=== PATIENT | female | born 1950 | race Caucasian/White ===

== ENCOUNTER 2016-08-21 16:31 | Emergency (ER) | payer OTHER ==
[2016-08-21 18:30] VITALS: TEMP 98; BMI 40.2
[2016-08-21] MEDS ORDERED: ONDANSETRON HCL 4 MG/2 ML VIAL IV ONE (18:51)
[2016-08-21] MEDS ORDERED: SODIUM CHLORIDE 0.9% 3 ML FLUSH FLUSH PRN (18:51)
[2016-08-21] MEDS ORDERED: NS 1,000 ML IV ONE ×2 (18:51)
[2016-08-21 19:07] LABS: AUTOMATED BASOPHIL 0.6 % (0-2); AUTOMATED EOSINOPHIL 1.4 % (0-5); AUTOMATED LYMPH 11.2 % (17-44); AUTOMATED MONOCYTE 4.3 % (3-10); AUTOMATED NEUTROPHIL 82.5 % (45-76)
[2016-08-21] MEDS ORDERED: HYDROmorphone 1 MG INJECTION IV ONE (19:17)
--- NOTE | 2016-08-21 19:19 | EDPRACDOC ---
- General Information Chief Complaint: Abdominal Pain Stated Complaint: LT SIDED ABD PAIN Time Seen by Provider: 08/21/16 18:49 Information Source: Patient Mode Of Arrival: Car Home Medications: Home Medications Cyanocobalamin (Vitamin B-12) [Vitamin B12] 2,500 mcg PO DAILY 04/20/15 Esomeprazole Mag Trihydrate [Nexium] 40 mg PO DAILY 04/20/15 Lorazepam [Ativan] 0.5 mg PO BID 04/20/15 Labetalol HCl [Trandate,Normodyne] 200 mg PO BID 08/21/16 Ondansetron [Zofran Odt] 4 mg PO Q6H #20 tab.rapdis 08/21/16 Oxycodone Immediate Release [Oxycodone Immediate Release (OxyIR)] 5 mg PO Q4H PRN #20 tab 08/21/16 Tamsulosin HCl [Flomax] 0.4 mg PO DAILY #20 cap 08/21/16 Allergies/Adverse Reactions: Allergies Allergy/AdvReac Type Severity Reaction Status Date / Time codeine Allergy Difficulty Verified 08/21/16 19:18 Breathing morphine Allergy Difficulty Verified 08/21/16 19:18 Breathing - History of Present Illness Onset: 1600 HPI: PT PRESENTS TO ED WITH ACUTE ONSET OF LLQ ABD PAIN THAT IS SHARP STABBING WITH NAUSEA. STATES SHE HAS H/O 2 KIDNEY STONES IN LEFT KIDNEY. DENIES RECTAL BLEEDING HEMATURIA OR URINARY SYMPTOMS. Pain Location: Reports: LLQ Pain Context: Reports: Spontaneous Pain Severity: Moderate Pain Quality: Reports: Sharp, Stabbing Pain Radiation: Reports: No Radiation : No Modifying Factors: improves with: Position, Movement Female Associated Signs & Symptoms: Reports: Nausea Oral Intake: Normal Urinary Output: Normal ED Past Medical History - History Reviewed Yes Nurses notes reviewed and agree except as marked Travel Outside of [place] in the Last 3 Months?: No - Patient Medical History Cardiac History: Reports: Hypertension, Heart Attack, Hypercholesterolemia GI/ History: Reports: Gastroesophageal Reflux Psychological History: Reports: Anxiety. Denies: Depression Systemic History: Reports: Cancer (BASAL CELL) Surgical History: Reports: Cholecystectomy, Hysterectomy, Hernia Surgery - Family Medical History Reports: Hypertension, Diabetes, Cancer (DAD-STOMACH), Cardiac Disorders. Denies: Stroke - Social Medical History Smoking Status: Never smoker ETOH: None Substance Abuse: None Lives With: Other Lives In: Home EDM Review of Systems - Review of Systems ROS Negative Except as Marked: Yes All systems reviewed and were negative except as marked Constitutional: No Symptoms Reported. negative: Fever, Chills, Weakness, Fatigue, Loss of Appetite Eyes: No Symptoms Reported. negative: Redness, Blurred Vision, Double Vision, Discharge, Pain, Light Sensitive, Photophobia Ears: No Symptoms Reported. negative: Pain, Hearing Loss, Drainage, Ear Pulling Throat: No Symptoms Reported. negative: Pain, Swelling Nose: No Symptoms Reported. negative: Congestion, Bleeding, Discharge, Injection, Swelling, Deformity, Ecchymosis, Tender, Abrasion, Laceration Mouth: No Symptoms Reported. negative: Pain, Drooling Respiratory: No Symptoms Reported. negative: Cough, Brassy Cough, Barky Cough, Shortness of Breath, Wheezing, Hemoptysis Cardiovascular: No Symptoms Reported. negative: Chest Pain, Palpitations, Syncope, Edema, Orthopnea, PND, Skin Mottling, Cyanosis Gastrointestinal: Nausea, Pain. negative: Constipation, Diarrhea, Formula Intolerance, Melena, Vomiting Genitourinary: No Symptoms Reported. negative: Dysuria, Hematuria, Frequency, Discharge, Bleeding, Testicular Pain, Neurological: No Symptoms Reported. negative: Headache, Dizziness, Seizure, Numbness, Weakness, Speech Difficulty, Gait Difficulty Musculoskeletal: No Symptoms Reported. negative: Neck, Chestwall, Ribs, Back, Shoulder, Arm, Elbow, Forearm, Wrist, Hand, Pelvis, Hip, Femur, Knee, Leg, Ankle , Foot Integumentary: No Symptoms Reported. negative: Itching, Rash, Bruising, Wound Allergic/Immunologic: No Symptoms Reported. negative: Hives, Itching Hematologic: No Symptoms Reported. negative: Lymphadenopathy, Easy Bruising, Easy Bleeding Endocrine: No Symptoms Reported. negative: Weight Gain, Weight Loss Psychiatric: No Symptoms Reported. negative: Anxiety, Depression, Hallucinations, Insomnia, Suicidal - Physical Exam Constitutional: No apparent distress, Alert (Awake) Oriented to: Time, Person, Place Last recorded Vital Signs: Last Vital Signs Temp 98.0 F 08/21/16 18:21 Pulse 92 08/21/16 20:26 Resp 20 08/21/16 20:26 BP 238/112 H 08/21/16 20:26 Pulse Ox 96 08/21/16 20:26 Oxygen Pulse Oxygen Saturation 96 O2 Device Room Air Oxygen Flow Rate Fraction of Inspired Oxygen ( FIO2) - HEENT Head: Normal ( normocephalic) Eye Exam: Normal (PERRL, EOMI, Sclera white) Oropharynx: Normal (Pharynx:Moist without exudate,Gums-no swelling) Tympanic Membrane: Normal ENT EAC: Normal TMJ: Normal Nose: No Symptoms Reported (septum midline) Neck: Normal (FROM, trachea at midline) - Respiratory/Cardiovascular Respiratory: Normal - CTA (BBS clear to auscultation without adventitious sounds ) Cardiovascular: Normal (RRR without murmur, gallop or rub) - GI Auscultation: Normal (NABS) Palpation: Normal (Soft,No rebound or guarding, non distended) Tenderness: Moderate, LLQ, Rebound Silva's Sign: Negative - Bladder: Normal - Musculoskeletal Back: Normal (Non-Tender) Extremities: Normal (Normal tone, Pulses 2+ No cyanosis or edema, FROM) - Integumentary Skin: Normal, Warm, Dry Lymphatics: Normal (no adenopathy) - Neurologic Memory Impaired: Normal Motor Function: Normal (Normal tone, Pulses 2+ No cyanosis or edema, FROM) Cranial Nerve: Normal (CN II-X11 intact sensation, strength 5/5) Cerebellar: Normal Mood Description: Normal Perception: Normal - Differential Diagnosis Constipation, Diverticulitis, Urolithiasis, UTI - Results 08/21/16 18:30 08/21/16 18:30 WBC 12.6 xk/uL (3.8-10.8) H 08/21/16 18:30 RBC 4.50 xM/uL (4.20-5.40) 08/21/16 18:30 Hgb 12.9 g/dL (12.0-16.0) 08/21/16 18:30 Hct 39.0 % (36-47) 08/21/16 18:30 MCV 87 fL (81-99) 08/21/16 18:30 MCH 28.8 pg (27-32) 08/21/16 18:30 MCHC 33.2 g/dl (33-36) 08/21/16 18:30 RDW 13.8 % (11.5-14.5) 08/21/16 18:30 Plt Count 243 xk/uL (130-400) 08/21/16 18:30 MPV 10.0 fL (7.4-10.4) 08/21/16 18:30 Neut % (Auto) 82.5 % (45-76) H 08/21/16 18:30 Lymph % (Auto) 11.2 % (17-44) L 08/21/16 18:30 Atkinson % (Auto) 4.3 % (3-10) 08/21/16 18:30 Eos % (Auto) 1.4 % (0-5) 08/21/16 18:30 Baso % (Auto) 0.6 % (0-2) 08/21/16 18:30 Absolute Neuts (auto) 10.33 xk/uL (1.7-8.2) H 08/21/16 18:30 Absolute Lymphs (auto) 1.39 xk/uL (0.65-4.75) 08/21/16 18:30 Sodium 140 mEq/L (137-146) 08/21/16 18:30 Potassium 4.2 mEq/L (3.5-5.1) 08/21/16 18:30 Chloride 105 mEq/L (98-107) 08/21/16 18:30 Carbon Dioxide 20 mMOL/L (22-33) L 08/21/16 18:30 Anion Gap 19 mEq/L (8-16) H 08/21/16 18:30 BUN 19 MG/DL (7-17) H 08/21/16 18:30 Creatinine 0.90 MG/DL (0.52-1.04) 08/21/16 18:30 Estimated GFR (MDRD) > 60 mL/min (>=60) 08/21/16 18:30 Glucose 184 MG/DL (70-99) H 08/21/16 18:30 Calculated Osmolality 276 MOs/Kg (270-290) 08/21/16 18:30 Calcium 9.6 MG/DL (8.4-10.2) 08/21/16 18:30 Total Bilirubin 0.7 MG/DL (0.2-1.3) 08/21/16 18:30 AST 34 IU/L (14-36) 08/21/16 18:30 ALT 51 IU/L (9-52) 08/21/16 18:30 Alkaline Phosphatase 167 IU/L (55-165) H 08/21/16 18:30 Total Protein 7.7 G/DL (6.3-8.2) 08/21/16 18:30 Albumin 4.3 G/DL (3.5-5.0) 08/21/16 18:30 Lipase 136 U/L (23-300) 08/21/16 18:31 Urine Color Dark yellow 08/21/16 18:31 Urine Clarity Cldy 08/21/16 18:31 Urine pH 6.0 (5.0-8.0) 08/21/16 18:31 Ur Specific [place] 1.025 (1.003-1.035) 08/21/16 18:31 Urine Protein 2+ (NEG/TRACE) H 08/21/16 18:31 Urine Glucose (UA) Neg (NEGATIVE) 08/21/16 18:31 Urine Ketones Neg (NEGATIVE) 08/21/16 18:31 Urine Occult Blood 3+ (NEG/TRACE) H 08/21/16 18:31 Urine Nitrite Neg (NEGATIVE) 08/21/16 18:31 Urine Bilirubin Neg (NEGATIVE) 08/21/16 18:31 Urine Urobilinogen <2.0 MG/DL (0-1) 08/21/16 18:31 Ur Leukocyte Esterase Neg (NEGATIVE) 08/21/16 18:31 Urine RBC Tntc (0-5) H 08/21/16 18:31 Ur Epithelial Cells 2+ 08/21/16 18:31 Urine Bacteria Few (NEG/FEW) 08/21/16 18:31 Urine Mucus Large (NEG/OCC) 08/21/16 18:31 Lab Results 08/21/16 08/21/16 08/21/16 18:31 18:31 18:30 WBC 12.6 H RBC 4.50 Hgb 12.9 Hct 39.0 MCV 87 MCH 28.8 MCHC 33.2 RDW 13.8 Plt Count 243 MPV 10.0 Neut % (Auto) 82.5 H Lymph % (Auto) 11.2 L Atkinson % (Auto) 4.3 Eos % (Auto) 1.4 Baso % (Auto) 0.6 Absolute Neuts (auto) 10.33 H Absolute Lymphs (auto) 1.39 Sodium Potassium Chloride Carbon Dioxide Anion Gap BUN Creatinine Estimated GFR (MDRD) Glucose Calculated Osmolality Calcium Total Bilirubin AST ALT Alkaline Phosphatase Total Protein Albumin Lipase 136 Urine Color Dark yellow Urine Clarity Cldy Urine pH 6.0 Ur Specific [place] 1.025 Urine Protein 2+ H Urine Glucose (UA) Neg Urine Ketones Neg Urine Occult Blood 3+ H Urine Nitrite Neg Urine Bilirubin Neg Urine Urobilinogen <2.0 Ur Leukocyte Esterase Neg Urine RBC Tntc H Ur Epithelial Cells 2+ Urine Bacteria Few Urine Mucus Large 08/21/16 18:30 WBC RBC Hgb Hct MCV MCH MCHC RDW Plt Count MPV Neut % (Auto) Lymph % (Auto) Atkinson % (Auto) Eos % (Auto) Baso % (Auto) Absolute Neuts (auto) Absolute Lymphs (auto) Sodium 140 Potassium 4.2 Chloride 105 Carbon Dioxide 20 L Anion Gap 19 H BUN 19 H Creatinine 0.90 Estimated GFR (MDRD) > 60 Glucose 184 H Calculated Osmolality 276 Calcium 9.6 Total Bilirubin 0.7 AST 34 ALT 51 Alkaline Phosphatase 167 H Total Protein 7.7 Albumin 4.3 Lipase Urine Color Urine Clarity Urine pH Ur Specific [place] Urine Protein Urine Glucose (UA) Urine Ketones Urine Occult Blood Urine Nitrite Urine Bilirubin Urine Urobilinogen Ur Leukocyte Esterase Urine RBC Ur Epithelial Cells Urine Bacteria Urine Mucus - Diagnostic Imaging CT ABD/PEL Image interpreted by: Radiologist 08/21/16 21:34 IMPRESSION: Mild left hydronephrosis due to a 0.5 cm stone at the ureteropelvic junction. No other acute abnormality. Fatty infiltration of the liver. Hiatal hernia. Atherosclerosis. Status post cholecystectomy and hysterectomy. - Departure Disposition: Home Condition: Stable Final Diagnosis: Calcium urolithiasis Instructions: Acute Abdominal Pain (ED), Ureteral Stones (ED) Education/Counseling Given To: Patient Education/Counseling Given Regarding: Diagnosis, Treatment, Prognosis, Follow Up Referrals: Eugenio Marie MD [Primary Care Provider] - One Week Drake Young MD [Staff Physician] - One Week Prescriptions: Ondansetron [Zofran Odt] 4 mg PO Q6H #20 tab.rapdis Oxycodone Immediate Release [Oxycodone Immediate Release (OxyIR)] 5 mg PO Q4H PRN #20 tab PRN Reason: Pain Tamsulosin HCl [Flomax] 0.4 mg PO DAILY #20 cap Additional Instructions: INCREASE PO FLUIDS, RETURN FOR WORSE OR DIFFERENT SYMPTOMS.
[2016-08-21 19:25] LABS: BLOOD UREA NITROGEN 19 MG/DL (7-17); CALCIUM 9.6 MG/DL (8.4-10.2); CALCULATED OSMOLALITY 276 MOs/Kg (270-290); CHLORIDE 105 mEq/L (98-107); GLUCOSE 184 MG/DL (70-99); SODIUM LEVEL 140 mEq/L (137-146); TOTAL PROTEIN 7.7 G/DL (6.3-8.2)
[2016-08-21] MEDS ORDERED: LABETALOL 20 MG/4 ML SYRINGE IV ONE (19:25)
[2016-08-21] MEDS ORDERED: HYDROCODONE 10 MG/ACETAMIN 325 MG TAB PO ONE (19:32)
[2016-08-21 19:33] LABS: LEUKOCYTES/URINE NEG (NEGATIVE); NITRITE/URINE NEG (NEGATIVE); RBC/URINE TNTC (0-5); URINE OCCULT BLOOD 3+ (NEG/TRACE)
[2016-08-21] MEDS ORDERED: Pharmacy Review for Metformin - IV Contrast Given SCH (20:00)
[2016-08-21] MEDS ORDERED: hydrALAZINE 20 MG/ML VIAL IV ONE (20:30)
--- NOTE | 2016-08-21 21:19 | DIRPT ---
CLINICAL DATA: Left lower quadrant abdominal pain and nausea beginning at 4 p.m. today. Initial encounter. EXAM: CT ABDOMEN AND PELVIS WITH CONTRAST TECHNIQUE: Multidetector CT imaging of the abdomen and pelvis was performed using the standard protocol following bolus administration of intravenous contrast. CONTRAST: 90 cc Isovue 370. COMPARISON: CT abdomen and pelvis 10/18/2015. FINDINGS: Mild dependent atelectasis is seen in the lung bases. Trace pleural effusions are noted. Heart size is mildly enlarged. Hiatal hernia is unchanged appearance with surgical clips about the hernia identified. The patient is status post cholecystectomy. The liver is low attenuating consistent with fatty infiltration. The spleen, adrenal glands, pancreas and biliary tree appear normal. The patient has mild left hydronephrosis due to a 0.5 cm stone at the ureteropelvic junction. No other urinary tract stones are identified. Right renal cysts are again seen, unchanged. There is scattered aortoiliac atherosclerosis without aneurysm. The patient is status post hysterectomy. Urinary bladder is unremarkable. The small and large bowel and appendix appear normal. No lymphadenopathy or fluid. No focal bony abnormality. IMPRESSION: Mild left hydronephrosis due to a 0.5 cm stone at the ureteropelvic junction. No other acute abnormality. Fatty infiltration of the liver. Hiatal hernia. Atherosclerosis. Status post cholecystectomy and hysterectomy. Electronically Signed By: Jaime Warner M.D. On: 08/21/2016 21:16
[2016-08-21 22:07] VITALS: BP 198/103; PULSE 82
[2016-08-22] MEDS ORDERED: SODIUM CHLORIDE 0.9% 3 ML FLUSH FLUSH SCH (06:00)
== END 2016-08-21 22:03 | disposition home or self-care (01) ==
LOC: ED 16:31
DX: N20.9 Urinary calculus, unspecified (principal)
CPT/HCPCS: 36415; 74177; 80053; 81001; 83690; 85025; 96361; 96374; 96375; 99283; A9698; J2405; J3490; J0360; J1170